=== PATIENT | male | born 1965 | race Caucasian/White ===

== ENCOUNTER 2016-11-02 14:08 | Emergency (ER) | payer SELFPAY ==
[~2016-11-02] VITALS: Ht 182.9 cm; Wt 81.6 kg
--- OUTSIDE RECORDS SUMMARY | 2016-11-02 14:15 | XMS REPORT ---
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 Problem Bipolar I disorder, most recent episode (or current) mixed, severe, specified as with psychotic behavior 296.64 Active Problem Nondependent opioid abuse, unspecified 305.50 Active Problem Chronic pain due to trauma 338.21 Active Assessment Essential hypertension I10 Active Problem Chronic pain syndrome 338.4 Active Problem Anxiety state, unspecified 300.00 Active Medications Medication Code System Code Instructions Start Date End Date Status Dosage Norvasc [facility] [address]-77 5 MG Orally Once a day Oct 06, 2015 1 tablet Metoprolol Tartrate [facility] [address]-05 100 MG Orally 3 times a day 1 tablet Procedures Procedure Coding System Code Date Office Visit, Est Pt., Level 3 CPT-4 98891 Oct 06, 2015 Vital Signs Date/Time: Oct 06, 2015 Temperature 97 F Weight 179.2 lbs Height 70 in BMI 25.71 Index Blood Pressure Diastolic 100 mmHg Blood Pressure Systolic 180 mmHg Cardiac Monitoring Heart Rate 80 bpm Results No Known Results Summary Purpose eClinicalWorks Submission
--- NOTE | 2016-11-02 14:19 | ED Abdominal Pain ---
General Stated Complaint: RT ARM PAIN,VOMITING Source of Information: Patient, Family Exam Limitations: No Limitations History of Present Illness Time Seen By Provider: 15:02 Initial Comments This 50-year-old white male presents with complaint of abdominal pain, hematemesis, and bloody stools. This has been present for the last 2 weeks. In addition the patient is having right shoulder pain made worse with movement. Past medical history of significance includes a right AKA amputation and multiple surgeries from bull riding accidents. Allergies and Home Medications Allergies Uncoded Allergies: ROPERIDOL (Adverse Reaction, Unknown, 11/02/16) Home Medications No Active Prescriptions or Reported Meds Review of Systems Constitutional: No chills, No fever EENTM: No Blurred Vision Respiratory: Denies Cough Cardiovascular: Denies Chest Pain Gastrointestinal: Abdominal Pain (diffuse abdominal pain sharp in nature.) Rectal Bleeding Vomiting (O blood.) Genitourinary: No Symptoms Reported Musculoskeletal: see HPI joint pain (patient is complaining of sharp right shoulder pain made worse with movement.) Skin: No rash Psychiatric/Neurological: Denies Anxiety, Denies Depressed Endocrine: No Symptoms Reported Hematologic/Lymphatic: No Symptoms Reported Past Oizmnfj-Wvjaan-Rffpfi Hx Patient Social History Recent Foreign Travel: No Contact w/Someone Who Travel: No Reviewed Nursing Assessment Reviewed/Agree w Nursing PMH: Yes Physical Exam Vital Signs VS - Last 72 Hours, by Label 11/02/16 14:15 Temp 97.5 Pulse 70 Resp 28 B/P 220/120 Capillary Refill : General Appearance: WD/WN mild distress HEENT: normal ENT inspection Neck: supple Respiratory: lungs clear Cardiovascular: regular rate, rhythm Gastrointestinal: normal bowel sounds non tender soft Extremities: other (movement of the right shoulder causes the patient discomfort. No crepitus or instability was present. There was a normal neurovascular exam times the 4 extremities. Eujjy-qly-traf amputation was noted to the right lower extremity.) Back: normal inspection Neurologic/Psychiatric: no motor/sensory deficits alert normal mood/affect Skin: normal color warm/dry Progress/Results/Core Measures Results/Orders Lab Results Laboratory Tests Test 11/02/16 15:34 11/02/16 16:00 Range/Units Alanine Aminotransferase (ALT/SGPT) 9 0-55 U/L Albumin 4.3 3.2-4.5 G/DL Alkaline Phosphatase 79 40-136 U/L Anion Gap 14 5-14 MMOL/L Aspartate Amino Transf (AST/SGOT) 15 5-34 U/L BUN/Creatinine Ratio 14 Basophils # (Auto) 0.1 0.0-0.1 10^3/uL Basophils (%) (Auto) 0 0-10 % Blood Urea Nitrogen 11 7-18 MG/DL Calcium Level 9.7 8.5-10.1 MG/DL Carbon Dioxide Level 19 L 21-32 MMOL/L Chloride Level 106 98-107 MMOL/L Creatinine 0.80 0.60-1.30 MG/DL Eosinophils # (Auto) 0.1 0.0-0.3 10^3/uL Eosinophils (%) (Auto) 1 0-10 % Estimat Glomerular Filtration Rate > 60 Glucose Level 82 70-105 MG/DL Hematocrit 41 40-54 % Hemoglobin 14.0 13.3-17.7 G/DL INR Comment 0.9 0.8-1.4 Lipase 11 8-78 U/L Lymphocytes # (Auto) 1.8 1.0-4.0 X 10^3 Lymphocytes (%) (Auto) 15 12-44 % Mean Corpuscular Hemoglobin 30 25-34 PG Mean Corpuscular Hemoglobin Concent 34 32-36 G/DL Mean Corpuscular Volume 87 80-99 FL Mean Platelet Volume 11.3 H 7.4-10.4 FL Monocytes # (Auto) 0.9 0.0-1.0 X 10^3 Monocytes (%) (Auto) 7 0-12 % Neutrophils # (Auto) 9.1 H 1.8-7.8 X 10^3 Neutrophils (%) (Auto) 76 H 42-75 % Platelet Count 246 130-400 10^3/uL Potassium Level 4.0 3.6-5.0 MMOL/L Prothrombin Time 12.3 12.2-14.7 SEC Red Blood Count 4.75 4.35-5.85 10^6/uL Red Cell Distribution Width 14.7 H 10.0-14.5 % Sodium Level 139 135-145 MMOL/L Total Bilirubin 0.3 0.1-1.0 MG/DL Total Protein 7.6 6.4-8.2 G/DL White Blood Count 12.0 H 4.3-11.0 10^3/uL Urine Bacteria NEGATIVE /HPF Urine Bilirubin NEGATIVE NEGATIVE Urine Casts NONE /LPF Urine Clarity CLEAR Urine Color YELLOW Urine Crystals NONE /LPF Urine Culture Indicated NO Urine Glucose (UA) NEGATIVE NEGATIVE Urine Ketones NEGATIVE NEGATIVE Urine Leukocyte Esterase NEGATIVE NEGATIVE Urine Mucus NEGATIVE /LPF Urine Nitrite NEGATIVE NEGATIVE Urine Protein NEGATIVE NEGATIVE Urine RBC NONE /HPF Urine RBC (Auto) NEGATIVE NEGATIVE Urine Specific [place] 1.005 L 1.016-1.022 Urine Urobilinogen NORMAL NORMAL MG/DL Urine WBC RARE /HPF Urine pH 7 5-9 My Orders Orders-EVERETT WARD MD Cbc With Automated Diff (11/02/16 14:16) Protime With Inr (11/02/16 14:16) Comprehensive Metabolic Panel (11/02/16 14:16) Lipase (11/02/16 14:16) Ua Culture If Indicated (11/02/16 14:16) Ns Iv 1000 Ml (Sodium Chloride 0.9%) (11/02/16 14:30) Shoulder, Right, 3 Views (11/02/16 15:04) Iohexol Injection (Omnipaque 350 Mg/Ml 1 (11/02/16 15:15) Ns (Ivpb) (Sodium Chloride 0.9% Ivpb Bag (11/02/16 15:15) Fentanyl Injection (Sublimaze Injection (11/02/16 15:30) Ct Abdomen/Pelvis Wo (11/02/16 16:30) Fentanyl Injection (Sublimaze Injection (11/02/16 16:45) Fentanyl Injection (Sublimaze Injection (11/02/16 16:45) Medications Given in ED Current Medications Medications Dose Ordered Sig/Rena Route Start Time Stop Time Status Last Admin Dose Admin Fentanyl Citrate 50 mcg ONCE ONCE IM 11/02/16 15:30 11/02/16 15:31 DC 11/02/16 15:31 50 MCG Fentanyl Citrate 50 mcg ONCE ONCE IM 11/02/16 16:45 11/02/16 16:46 DC 11/02/16 16:45 50 MCG Vital Signs/I&O Vital Sign - Last 12Hours 11/02/16 14:15 Temp 97.5 Pulse 70 Resp 28 B/P 220/120 Progress Note : Time: 17:16 Progress Note Patient's laboratory and rated graphic evaluation were unremarkable. 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 Patient's CT of the abdomen and pelvis were similarly benign. Patient's laboratory evaluation was unremarkable. The patient received a total of 100 g of fentanyl IV. Patient's pain was much improved. I discussed patient's findings with the patient and family. Were going to arrange for close follow-up. Health on Saturday. I gave him a few hydrocodone for pain over the weekend. He was invited return if any acute problems or questions. Departure Impression Impression: Primary Impression: Acute abdominal pain Additional Impressions: Shoulder pain, right Qualified Code: M25.511 - Pain in right shoulder History of GI bleed Disposition: HOME, SELF-CARE Condition: Improved Departure-Patient Inst. Decision time for Depature: 17:18 Referrals: [facility],LOCAL PHYSICIAN (PCP) Primary Care Physician Patient Instructions: Acute Abdomen (Belly Pain), Adult (DC) Add. Discharge Instructions: Close follow-up with [facility] on Saturday. Hydrocodone for pain. Return if any acute problems or questions. Scripts No Active Prescriptions or Reported Meds EVERETT WARD MD Nov 02, 2016 14:19
[2016-11-02] MEDS ORDERED: NS IV 1000 ML 1,000 ML IV SCH (14:30)
[2016-11-02] MEDS ORDERED: NS 100 ML (IVPB) BAG IV ONE (15:15)
[2016-11-02] MEDS ORDERED: IOHEXOL 350 MG/ML 100 ML (OMNIPAQUE 350) VIAL IV ONE (15:15)
[2016-11-02] MEDS ORDERED: fentaNYL INJECTION 100 MCG/2 ML AMP IM ONE ×2 (15:30→16:45)
[2016-11-02 16:10] LABS: BASOPHILS # (AUTO) 0.1 10^3/uL (0.0-0.1); BASOPHILS % (AUTO) 0 % (0-10); EOSINOPHILS # (AUTO) 0.1 10^3/uL (0.0-0.3); EOSINOPHILS % (AUTO) 1 % (0-10); LYMPHOCYTES # (AUTO) 1.8 X 10^3 (1.0-4.0); LYMPHOCYTES % (AUTO) 15 % (12-44); MEAN CORPUSCULAR HEMOGLOBIN 30 PG (25-34); MEAN CORPUSCULAR HGB CONC 34 G/DL (32-36); MEAN CORPUSCULAR VOLUME 87 FL (80-99); MEAN PLATELET VOLUME 11.3 FL (7.4-10.4); MONOCYTES # (AUTO) 0.9 X 10^3 (0.0-1.0); MONOCYTES % (AUTO) 7 % (0-12); NEUTROPHILS # (AUTO) 9.1 X 10^3 (1.8-7.8); NEUTROPHILS % (AUTO) 76 % (42-75); PLATELET COUNT 246 10^3/uL (130-400); RED BLOOD COUNT 4.75 10^6/uL (4.35-5.85); RED CELL DISTRIBUTION WIDTH 14.7 % (10.0-14.5)
[2016-11-02 16:12] LABS: BILIRUBIN,URINE NEGATIVE (NEGATIVE); KETONES,URINE NEGATIVE (NEGATIVE); LEUKOCYTE ESTERASE ,URINE NEGATIVE (NEGATIVE); NITRITE,URINE NEGATIVE (NEGATIVE); PH,URINE 7 (5-9); PROTEIN,URINE NEGATIVE (NEGATIVE); UROBILINOGEN,URINE NORMAL (NORMAL)
[2016-11-02 16:13] LABS: INR 0.9 (0.8-1.4); PROTHROMBIN TIME PATIENT 12.3 SEC (12.2-14.7)
[2016-11-02 16:21] LABS: WBC,URINE RARE /HPF
[2016-11-02 16:23] LABS: ALANINE AMINOTRANSFERASE 9 U/L (0-55); ALBUMIN 4.3 G/DL (3.2-4.5); ANION GAP 14 MMOL/L (5-14); ASPARTATE AMINO TRANSFERASE 15 U/L (5-34); BILIRUBIN,TOTAL 0.3 MG/DL (0.1-1.0); BLOOD UREA NITROGEN 11 MG/DL (7-18); BUN/CREATININE RATIO 14; CALCIUM 9.7 MG/DL (8.5-10.1); CARBON DIOXIDE 19 MMOL/L (21-32); CHLORIDE 106 MMOL/L (98-107); GFR ESTIMATED > 60; GLUCOSE 82 MG/DL (70-105); LIPASE 11 U/L (8-78); SODIUM 139 MMOL/L (135-145); TOTAL PROTEIN 7.6 G/DL (6.4-8.2)
--- NOTE | 2016-11-02 16:24 | Diagnostic Imaging Report ---
INDICATION: Right shoulder pain. FINDINGS: Three views of the right shoulder show no fracture, dislocation, or other acute abnormalities. IMPRESSION: Negative right shoulder. Dictated by: Dictated on workstation # [id number]
[2016-11-02] MEDS ORDERED: fentaNYL INJECTION 100 MCG/2 ML AMP IVP ONE (16:45)
--- NOTE | 2016-11-02 17:08 | Diagnostic Imaging Report ---
PROCEDURE: CT abdomen and pelvis without contrast. TECHNIQUE: Multiple contiguous axial images were obtained through the abdomen and pelvis without the use of intravenous contrast. INDICATION: Tarry stools, hematemesis, right upper quadrant pain of one week's duration. COMPARISON: None. FINDINGS: There is no ascites, abscess, hematoma or other fluid collection. No pneumatosis or free air. The unopacified liver, bile ducts, gallbladder, spleen, adrenals and pancreas are all unremarkable. There is no hydronephrosis. There are no opaque kidney stones. There are no findings of appendicitis or diverticulitis. Arterial and venous vascular calcifications, chronic. There was no focal inflammatory process. No abdominal wall fluid collection or defect. The osseous structures appear nonacute. No abnormal hollow visceral distention. The lung bases are nonacute. IMPRESSION: No obstructive features, inflammatory process, ascites or fluid collection. No acute finding identified. Dictated by: Dictated on workstation # [id number]
[2016-11-02 17:55] VITALS: BP 200/129
== END 2016-11-02 17:58 | disposition home or self-care (01) ==
LOC: ER 14:11
DX: R10.84 Generalized abdominal pain (principal); M25.511 Pain in right shoulder; K92.1 Melena; Z87.19 Personal history of other diseases of the digestive system
CPT/HCPCS: 36415; 73030; 74176; 80053; 81000; 83690; 85025; 85610; 96372; 99282

== ENCOUNTER 2022-12-07 14:20 | Emergency (ER) | payer MEDICAID ==
[~2022-12-07] VITALS: Ht 177 cm; Wt 68.0 kg
--- NOTE | 2022-12-07 15:20 | ED General ---
General Chief Complaint: General Problems/Pain Stated Complaint: GENERAL PAIN Nursing Triage Note: PT CO OF PAIN IN LOWER ABD, INCREASED INC, PT CO OF PAIN IN STUMPS. HAS BILATERAL ABOVE KNEE AMP. STATES HAS BEEN VOIDING BLOOD. CONCERNED ABOUT PROSTRATE. PT HAS RESIDUAL L SIDED WEAKNESS FROM RECENT STROKE APPROX 1 MONTH AGO. PT DID NOT TAKE B/P MEDS THIS AM Source of Information: Patient Exam Limitations: No Limitations (JANNY VILLAFUERTE) History of Present Illness Date Seen by Provider: Dec 07, 2022 Time Seen by Provider: 15:17 Initial Comments Patient is a 57-year-old male with bilateral above-knee amputations, stroke who presents ED with multiple complaints. Reports left stump pain for the past 2 to 3 months. Reports a small little abrasion to his stub. Patient also reports some lower abdominal pain and discomfort over the past few months. Reports urine incontinence with bloody urine. States he has had a few episodes of bowel incontinence over the past two months. He states he has had some urine incontinence prior to the stroke as well. States he had dark tarry stool a few days ago and intermittently since his stroke. Stroke 2 months ago and was evaluated at [facility] patient. Patient states he is on aspirin but denies of any known blood thinners. Chronic left-sided weakness from the stroke. He lost his right leg secondary to bull accident and had a DVT to his left leg 2 years ago. Denies of any chest pain, cough, vomiting, diarrhea, headache, dizziness, alcohol use, drug use. (JANNY VILLAFUERTE) Allergies and Home Medications Allergies Coded Allergies: fentanyl (Verified Allergy, Unknown, 12/07/22) Uncoded Allergies: ROPERIDOL (Adverse Reaction, Unknown, 11/02/16) Patient Home Medication List Home Medication List Reviewed: Yes (JANNY VILLAFUERTE) Hydrocodone/Acetaminophen (Hydrocodone-Acetamin 7.5-325) 7.5 Mg-325 Mg Tablet, 1 EACH PO Q6H Prescribed by: SUZAN MCINTOSH on 12/07/221652 Pantoprazole Sodium (Protonix) 40 Mg Tablet.dr, 40 MG PO DAILY Prescribed by: SUZAN MCINTOSH on 12/07/221651 Review of Systems Review of Systems Constitutional: No chills, No diaphoresis, No malaise, No weakness EENTM: No ear pain, No blurred vision, No double vision Respiratory: No cough, No dyspnea on exertion Cardiovascular: No chest pain Gastrointestinal: abdominal pain; No constipation, No nausea, No vomiting Musculoskeletal: No back pain; joint pain, muscle pain Skin: No change in color, No change in hair/nails (JANNY VILLAFUERTE) All Other Systems Reviewed Negative Unless Noted: Yes (JANNY VILLAFUERTE) Past Cimjvui-Dokhqe-Skmgom Hx Patient Social History Tobacco Use?: Yes Tobacco type used: Cigarettes Smoking Status: Current Everyday Smoker Substance use?: No Alcohol Use?: No Pt feels they are or have been: No (JANNY VILLAFUERTE) Immunizations Up To Date Influenza Vaccine Up-to-Date: No; Not Current First/Initial COVID19 Vaccinat: YES Second COVID19 Vaccination Ziyad: YES (JANNY VILLAFUERTE) Seasonal Allergies Seasonal Allergies: No (JANNY VILLAFUERTE) Past Medical History Surgery/Hospitalization HX: BLOOD CLOT IN LEG CAUSED LEG TO BE AMPT. CRUSH OTHER LEG IN RODEO ACCIDENT. RECENT STROKE. APPENDIX.HTN, MEDS FOR PAIN, MEDS FOR STROKE Orthopedic Diabetes, Non-Insulin dep (JANNY VILLAFUERTE) Physical Exam Vital Signs Vital Signs - First Documented 12/07/22 14:28 Temp 36.7 Pulse 92 Resp 18 B/P (MAP) 173/93 (119) Pulse Ox 98 (GRISEL WARREN MD) Vital Signs Capillary Refill : Less Than 3 Seconds (JANNY VILLAFUERTE) Height, Weight, BMI Height: 6'" Weight: 180lbs. oz. 81.880065io; 21.00 BMI Method:Estimated General Appearance: No Apparent Distress, WD/WN Eyes: Bilateral Eye Normal Inspection, Bilateral Eye PERRL, Bilateral Eye EOMI HEENT: PERRL/EOMI, TMs Normal, Normal ENT Inspection, Pharynx Normal Neck: Full Range of Motion, Normal Inspection, Non Tender, Supple Respiratory: Chest Non Tender, Lungs Clear, Normal Breath Sounds, No Accessory Muscle Use Cardiovascular: Regular Rate, Rhythm, No Edema, No Gallop, No JVD, Normal Peripheral Pulses Gastrointestinal: Normal Bowel Sounds, No Organomegaly, No Pulsatile Mass, Soft, Tenderness (Right lower quadrant tenderness) Extremity: Other (Bilateral above-knee amputations. Small skin abrasion to left knee) Neurologic/Psychiatric: Alert, Oriented x3, No Motor/Sensory Deficits, Normal Mood/Affect, application integration specialist II-XII Norm as Tested Skin: Normal Color, Warm/Dry (JANNY VILLAFUERTE) Progress/Results/Core Measures Suspected Sepsis SIRS Temperature: Pulse: 92 Respiratory Rate: 18 Laboratory Tests 12/07/22 15:30: White Blood Count 13.2H Blood Pressure 173 /93 Mean: 119 Laboratory Tests 12/07/22 15:08: Creatinine 0.90, Total Bilirubin 0.2 12/07/22 15:30: Platelet Count 373 (JANNY VILLAFUERTE) Results/Orders Lab Results Laboratory Tests Test 12/07/22 15:08 12/07/22 15:30 12/07/22 15:35 Range/Units Sodium Level 140 135-145 MMOL/L Potassium Level 4.5 3.6-5.0 MMOL/L Chloride Level 109 H 98-107 MMOL/L Carbon Dioxide Level 22 21-32 MMOL/L Anion Gap 9 5-14 MMOL/L Blood Urea Nitrogen 19 H 7-18 MG/DL Creatinine 0.90 0.60-1.30 MG/DL Estimat Glomerular Filtration Rate 101 BUN/Creatinine Ratio 21 Glucose Level 95 70-105 MG/DL Calcium Level 9.7 8.5-10.1 MG/DL Corrected Calcium 9.5 8.5-10.1 MG/DL Total Bilirubin 0.2 0.1-1.0 MG/DL Aspartate Amino Transf (AST/SGOT) 19 5-34 U/L Alanine Aminotransferase (ALT/SGPT) 18 0-55 U/L Alkaline Phosphatase 79 40-136 U/L C-Reactive Protein High Sensitivity 0.28 0.00-0.50 MG/DL Total Protein 7.4 6.4-8.2 GM/DL Albumin 4.2 3.2-4.5 GM/DL Lipase 26 8-78 U/L White Blood Count 13.2 H 4.3-11.0 10^3/uL Red Blood Count 4.37 4.30-5.52 10^6/uL Hemoglobin 13.0 L 13.3-17.7 g/dL Hematocrit 40 40-54 % Mean Corpuscular Volume 91 80-99 fL Mean Corpuscular Hemoglobin 30 25-34 pg Mean Corpuscular Hemoglobin Concent 33 32-36 g/dL Red Cell Distribution Width 15.8 H 10.0-14.5 % Platelet Count 373 130-400 10^3/uL Mean Platelet Volume 9.9 9.0-12.2 fL Immature Granulocyte % (Auto) 1 % Neutrophils (%) (Auto) 67 42-75 % Lymphocytes (%) (Auto) 25 12-44 % Monocytes (%) (Auto) 6 0-12 % Eosinophils (%) (Auto) 1 0-10 % Basophils (%) (Auto) 0 0-10 % Neutrophils # (Auto) 8.8 H 1.8-7.8 X 10^3 Lymphocytes # (Auto) 3.3 1.0-4.0 X 10^3 Monocytes # (Auto) 0.8 0.0-1.0 X 10^3 Eosinophils # (Auto) 0.1 0.0-0.3 10^3/uL Basophils # (Auto) 0.0 0.0-0.1 10^3/uL Immature Granulocyte # (Auto) 0.1 0.0-0.1 10^3/uL Urine Color YELLOW Urine Clarity CLEAR Urine pH 6.0 5-9 Urine Specific [place] >=1.030 1.016-1.022 Urine Protein NEGATIVE NEGATIVE Urine Glucose (UA) NEGATIVE NEGATIVE Urine Ketones NEGATIVE NEGATIVE Urine Nitrite NEGATIVE NEGATIVE Urine Bilirubin NEGATIVE NEGATIVE Urine Urobilinogen 0.2 < = 1.0 MG/DL Urine Leukocyte Esterase NEGATIVE NEGATIVE Urine RBC (Auto) NEGATIVE NEGATIVE Urine RBC NONE /HPF Urine WBC NONE /HPF Urine Crystals NONE /LPF Urine Bacteria NEGATIVE /HPF Urine Casts NONE /LPF Urine Mucus NEGATIVE /LPF Urine Culture Indicated NO (GRISEL WARREN MD) Vital Signs/I&O 12/07/22 12/07/22 14:28 16:59 Temp 36.7 Pulse 92 Resp 18 B/P (MAP) 173/93 (119) 192/125 Pulse Ox 98 (GRISEL WARREN MD) Vital Signs/I&O Capillary Refill : Less Than 3 Seconds (JANNY VILLAFUERTE) Blood Pressure Mean: 119 Departure Communication (PCP) Reviewed previous ER visits, outpatient visits, lab testing. Patient with a stroke 2 months ago was seen at [facility]. Residual left-sided deficits. He has bilateral above-knee amputations secondary to a bull riding injury and a DVT of the left leg. Patient's complaint of left leg pain for several months since the surgery. Does have a abrasion near the stub without surrounding redness or swelling. Due to location of pain x-ray was ordered which was u nremarkable. No fracture. No evidence of cortical destruction. No suspicion of osteomyelitis at this time. Normal CRP. patient is complaining of right lower quad abdominal pain over the past few months with urine incontinence. Had episode today where he became incontinent. Has had episodes of incontinence since the stroke. He does not have a catheter. He was able to urinate here with a normal stream and without pain. Due to patient's current abdominal pain CBC, CMP, urinalysis was ordered CBC showed an elevated white blood count of 13 but otherwise unremarkable. Likely reactive. No evidence of infection. CMP was unremarkable. He states he is on aspirin. Denies blood thinner. patient reports intermittent dark stool. Refused rectal exam. Denies Pepto-Bismol, iron supplements. Hemoglobin is 13. States last episode of dark tarry stool was 2 days ago. Intermittent black tarry stools over the past 2 months. Recommend reevaluation with lab work in 2 to 3 days with CBC. Reports indigestion and bloating at times. Denies alcohol use or excessive ibuprofen use. Discussed starting on Protonix. Denies history of ulcers, GI bleeds, gastritis. Urinalysis was negative for infection or hematuria. CT abdomen and pelvis was otherwise unremarkable for acute abnormality. No enlarged prostate, hydronephrosis, nephrolithiasis, enlarged bladder suggesting outlet obstruction, evidence of cancer. Patient was given a dose of pain medication. He denies of any headache. He does have history of confusion and finds it difficult of getting words out. No stroke like symptoms at this time. CT scan of the head was held. Discussed all results, lab test with patient. I do believe patient would benefit with outpatient PT, speech therapy. He does have support at home. He is wheelchair-bound. Most of today's complaints are chronic and have been ongoing for the past few months since his stroke. Intermittent urine incontinence potentially secondary to his stroke. Unclear etiology of the dark tarry stool until further evaluation such as Hemoccult test versus EGD, colonoscopy. Hemoglobin is reassuring at this time. States normal bowel mov ements and no incontinence with his bowel movement at this time. Discussed follow-up with your primary care physician for further evaluation. Patient was hypertensive on arrival. Initial blood pressure 173/93, second blood pressure 193/125. Recommend receiving IV hydralazine or oral medication. Patient refused. He states he has blood pressure medication at home. He does not want me to treat his blood pressure at this time. Discussed importance of managing his blood pressure as this can lead to cardiac dysfunction, stroke. He is not established with a primary care physician. He has a scheduled follow-up next . (JANNY VILLAFUERTE) Impression Primary Impression: Abdominal pain Disposition: HOME, SELF-CARE Condition: Stable Departure-Patient Inst. Decision time for Depature: 16:51 (JANNY VILLAFUERTE) Referrals: NO,LOCAL PHYSICIAN (PCP/Family) Primary Care Physician Patient Instructions: Abdominal Pain, Adult ED Scripts Pantoprazole Sodium (Protonix) 40 Mg Tablet.dr 40 MG PO DAILY, #20 TAB Prov: JANNY VILLAFUERTE 12/07/22 Hydrocodone/Acetaminophen (Hydrocodone-Acetamin 7.5-325) 7.5 Mg-325 Mg Tablet 1 EACH PO Q6H, #14 TAB Prov: JANNY VILLAFUERTE 12/07/22 ATTENDING PHYSICIAN NOTE: I was physically present as attending physician in the emergency department during the care of this patient, but I was not directly involved in the decision making or delivery of care for this patient. (GRISEL WARREN MD) JANNY VILLAFUERTE Dec 07, 2022 15:20 GRISEL WARREN MD Dec 08, 2022 09:24
[2022-12-07 15:33] LABS: ALBUMIN 4.2 GM/DL (3.2-4.5); POTASSIUM 4.5 MMOL/L (3.6-5.0)
[2022-12-07 15:34] LABS: CALCIUM 9.7 MG/DL (8.5-10.1)
[2022-12-07 15:35] LABS: TOTAL PROTEIN 7.4 GM/DL (6.4-8.2)
[2022-12-07 15:37] LABS: BILIRUBIN,TOTAL 0.2 MG/DL (0.1-1.0)
[2022-12-07 15:39] LABS: CREATININE SERUM 0.9 MG/DL (0.60-1.30)
[2022-12-07 15:43] LABS: BILIRUBIN,URINE NEGATIVE (NEGATIVE); CLARITY,URINE CLEAR; COLOR,URINE YELLOW; GLUCOSE, URINE (UA) NEGATIVE (NEGATIVE); KETONES,URINE NEGATIVE (NEGATIVE); LEUKOCYTE ESTERASE ,URINE NEGATIVE (NEGATIVE); NITRITE,URINE NEGATIVE (NEGATIVE); PROTEIN,URINE NEGATIVE (NEGATIVE)
[2022-12-07 15:45] LABS: BASOPHILS % (AUTO) 0 % (0-10); EOSINOPHILS # (AUTO) 0.1 10^3/uL (0.0-0.3); EOSINOPHILS % (AUTO) 1 % (0-10); HEMATOCRIT 40 % (40-54); LYMPHOCYTES # (AUTO) 3.3 X 10^3 (1.0-4.0); LYMPHOCYTES % (AUTO) 25 % (12-44); MEAN CORPUSCULAR HEMOGLOBIN 30 pg (25-34); MEAN CORPUSCULAR HGB CONC 33 g/dL (32-36); MEAN CORPUSCULAR VOLUME 91 fL (80-99); MEAN PLATELET VOLUME 9.9 fL (9.0-12.2); MONOCYTES # (AUTO) 0.8 X 10^3 (0.0-1.0); MONOCYTES % (AUTO) 6 % (0-12); NEUTROPHILS # (AUTO) 8.8 X 10^3 (1.8-7.8); NEUTROPHILS % (AUTO) 67 % (42-75); PLATELET COUNT 373 10^3/uL (130-400); WHITE BLOOD COUNT 13.2 10^3/uL (4.3-11.0)
--- NOTE | 2022-12-07 15:53 | Diagnostic Imaging Report ---
CT ABD/PELVIS WO(KIDNEY STONE) TECHNIQUE: Unenhanced CT imaging of the abdomen and pelvis was performed. 2-D reformats are created and submitted for interpretation. Automatic exposure controls were utilized to optimize patient dose. INDICATION: Right-sided abdominal pain COMPARISON: 11/02/2016 FINDINGS: Lower chest: The lung bases are clear. No pericardial or pleural effusion. Peritoneum: No free intraperitoneal air or fluid. Liver and biliary system: Unenhanced liver is normal. Cholecystectomy. Spleen and Pancreas: Spleen is normal. Unenhanced pancreas is grossly normal. Adrenals: Normal. tract: No renal or ureteral calculi. No obstructive uropathy. Urinary bladder is decompressed by Bender catheter. There is a 1.1 x 1.1 cm cyst mid right kidney GI tract: Stomach is filled with fluid and food debris. No bowel obstruction. No pericolonic inflammatory changes. No features of appendicitis. Vasculature and Lymph nodes: Normal caliber aorta has severe atherosclerotic plaquing. No abdominal or pelvic lymphadenopathy. Musculoskeletal: No concerning osseous lesion. IMPRESSION: 1. No acute obstructive or inflammatory process. 2. Urinary tract stones. Dictated by: Dictated on workstation # [id number]
--- NOTE | 2022-12-07 16:00 | Diagnostic Imaging Report ---
INDICATION: Left femoral stump pain, history of yuywl-pvg-pcsq amputation. AP and lateral views of the left femur are obtained. FINDINGS: There is no acute fracture or definite bone erosion. There is heterotopic ossification at the femoral stump, which appears chronic. IMPRESSION: No acute fracture or erosive bony lesion. 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 Dictated by: Dictated on workstation # [id number]
[2022-12-07 16:03] LABS: BACTERIA,URINE NEGATIVE /HPF
[2022-12-07] MEDS ORDERED: PANT40TA2 PO (16:52)
[2022-12-07] MEDS ORDERED: HYDR-3817 PO (16:52)
[2022-12-07 16:59] VITALS: BP 192/125
== END 2022-12-07 17:00 | disposition home or self-care (01) ==
LOC: EDUNIT# 14:20 → ER 14:22
DX: S80.212A Abrasion, left knee, initial encounter (principal); R10.31 Right lower quadrant pain; I82.402 Acute embolism and thrombosis of unspecified deep veins of left lower extremity; I69.398 Other sequelae of cerebral infarction; I10 Essential (primary) hypertension; F17.210 Nicotine dependence, cigarettes, uncomplicated; Z89.511 Acquired absence of right leg below knee; Z89.512 Acquired absence of left leg below knee; Z79.82 Long term (current) use of aspirin; Z99.3 Dependence on wheelchair; X58.XXXA Exposure to other specified factors, initial encounter
CPT/HCPCS: 36415; 73552; 74176; 80053; 81000; 83690; 85025; 86141

== ENCOUNTER 2022-12-18 15:23 | Emergency (ER) | payer MEDICAID ==
[~2022-12-18 15:23] MED LIST: HYDR-3817 PO; PANT40TA2 PO
--- NOTE | 2022-12-18 16:07 | ED General ---
General Chief Complaint: General Problems/Pain Stated Complaint: CHRONIC PAIN/ELEV BP Source of Information: Patient Exam Limitations: No Limitations History of Present Illness Date Seen by Provider: Dec 18, 2022 Time Seen by Provider: 16:04 Initial Comments Patient is a 57-year-old male with a history of stroke, bilateral above-knee amputation presents ED for pain. Patient reports continuous pain in his legs. Also reports generalized abdominal pain and discomfort over the past few months. States he was seen here on 07 December was prescribed Protonix with some improvement. History of intermittent urine incontinence. Able to produce urine today. According to significant other patient does have difficulties with his speech since the stroke. Has not followed up regarding physical therapy, speech therapy. States he is has some weakness secondary to the stroke and falls out of his wheelchair. Patient is on blood pressure medication which she cannot recall. Patient states he has a appointment on the for pain specialist. Denies headache, visual changes, chest pain, shortness of breath, cough, vomiting, diarrhea, redness and swelling of his stubs Allergies and Home Medications Allergies Coded Allergies: fentanyl (Verified Allergy, Unknown, 12/07/22) Uncoded Allergies: ROPERIDOL (Adverse Reaction, Unknown, 11/02/16) Patient Home Medication List Home Medication List Reviewed: Yes Amlodipine Besylate (Amlodipine Besylate) 10 Mg Tablet, 10 MG PO DAILY Prescribed by: SUZAN MCINTOSH on 12/18/221656 Hydrocodone/Acetaminophen (Hydrocodone-Acetamin 7.5-325) 7.5 Mg-325 Mg Tablet, 1 EACH PO Q6H Prescribed by: SUZAN MCINTOSH on 12/07/221652 Hydrocodone/Acetaminophen (Hydrocodone-Acetamin 5-325 mg) 5 Mg-325 Mg Tablet, 1 TAB PO Q4H PRN for PAIN-MODERATE (5-7) Prescribed by: SUZAN MCINTOSH on 12/18/221656 Losartan/Hydrochlorothiazide (Hyzaar 100-12.5 Tablet) 100 Mg-12.5 Mg Tablet, 1 EACH PO DAILY Prescribed by: SUZAN MCINTOSH on 12/18/221656 Pantoprazole Sodium (Protonix) 40 Mg Tablet.dr, 40 MG PO DAILY Prescribed by: SUZAN MCINTOSH on 12/07/221651 Review of Systems Review of Systems Constitutional: No chills, No diaphoresis, No malaise, No weakness EENTM: No ear pain, No blurred vision, No double vision Respiratory: No cough, No dyspnea on exertion, No short of breath Cardiovascular: No chest pain Gastrointestinal: abdominal pain; No constipation, No nausea, No vomiting Genitourinary: No decreased output, No discharge, No frequency, No hematuria Musculoskeletal: No back pain, No joint pain Skin: No change in color, No change in hair/nails All Other Systems Reviewed Negative Unless Noted: Yes Past Xmjozlj-Ladjbc-Cuivab Hx Patient Social History Tobacco Use?: Yes Tobacco type used: Cigarettes Smoking Status: Current Everyday Smoker Use of E-Cig and/or Vaping dev: No Substance use?: No Alcohol Use?: No Pt feels they are or have been: No Immunizations Up To Date Influenza Vaccine Up-to-Date: No; Not Current First/Initial COVID19 Vaccinat: X2 Second COVID19 Vaccination Ziyad: X2 Seasonal Allergies Seasonal Allergies: No Past Medical History Surgery/Hospitalization HX: BLOOD CLOT IN LEG CAUSED LEG TO BE AMPT. CRUSH OTHER LEG IN [place]DEO ACCIDENT. RECENT STROKE, APPENDIX, HTN, CHRONIC PAIN, GERD Orthopedic Diabetes, Non-Insulin dep Physical Exam Vital Signs Vital Signs - First Documented 12/18/22 15:32 Temp 36.7 Pulse 93 Resp 18 B/P (MAP) 207/115 (145) Pulse Ox 99 O2 Delivery Room Air Capillary Refill : Height, Weight, BMI Height: 6'" Weight: 180lbs. oz. [id number]; 21.00 BMI Method:Estimated General Appearance: No Apparent Distress, WD/WN Eyes: Bilateral Eye Normal Inspection, Bilateral Eye PERRL, Bilateral Eye EOMI HEENT: PERRL/EOMI, TMs Normal, Normal ENT Inspection, Pharynx Normal Neck: Full Range of Motion, Normal Inspection, Non Tender, Supple Respiratory: Chest Non Tender, Lungs Clear, Normal Breath Sounds, No Accessory Muscle Use, No Respiratory Distress Cardiovascular: Regular Rate, Rhythm, No Edema, No Gallop, No JVD Gastrointestinal: Normal Bowel Sounds, No Organomegaly, No Pulsatile Mass Back: Normal Inspection, No CVA Tenderness Extremity: Other ( bilateral khlyo-lqw-ceei amputation. No erythema, swelling. 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 History of stroke with chronic pain. Patient was seen here December 07 with lab work for similar complaints. He has not followed up with primary care physician but does have a scheduled follow-up on the December 27 with pain management. patient without any new strokelike symptoms. Bilateral above-knee amputation. Concerning for phantom pain. Patient Was given a dose of pain medication. He had no abdominal tenderness, chest pain, cough, shortness of breath. Patient was hypertensive here. Currently on losartan 100 mg daily and amlodipine 10 mg daily. Patient blood pressure improved once pain was controlled. He has no new current focal neural deficits. Patient with chronic left-sided residual neurodeficits. Patient appears in no acute distress. Differential diagnosis of chronic pain, hypertensive urgency, hypertensive emergency, neuropathy, chronic neural deficits, chronic aphasia. He states pain improved after pain medication. He is requesting a few days worth of pain medication till his appointment. Discussed switching his losartan to losartan/ hydrochlorothiazide 100 mg/12.5mg due to the continuing increased blood pressure. Discussed chronically elevated blood pressure may result in stroke, CHF, coronary artery disease. Do not take the losartan 100 mg at home. Patient does not appear toxic or septic. Patient does have a wheelchair. Recommend speech therapy for his aphasia, physical therapy to help strengthen him poststroke. No new complaints. Patient lab work on December 07 was otherwise unremarkable. He refused lab work at this time. Discussed CBC, CMP for kidney function. No evidence of endorgan damage with his exam such as severe head pain, chest pain, change in urination, abdominal pain. He is currently on Protonix for acid reflux Impression Primary Impression: Chronic pain Additional Impression: Hypertension Disposition: 01 HOME, SELF-CARE Condition: Stable Departure-Patient Inst. Decision time for Depature: 16:35 Referrals: NO,LOCAL PHYSICIAN (PCP/Family) Primary Care Physician Patient Instructions: High Blood Pressure in Adults Add. Discharge Instructions: Do not take the losartan with the Hyzaar. All discharge instructions reviewed with patient and/or family. Voiced understanding. Scripts Hydrocodone/Acetaminophen (Hydrocodone-Acetamin 5-325 mg) 5 Mg-325 Mg Tablet 1 TAB PO Q4H PRN for PAIN-MODERATE (5-7), #10 TAB Prov: JANNY VILLAFUERTE 12/18/22 Losartan/Hydrochlorothiazide (Hyzaar 100-12.5 Tablet) 100 Mg-12.5 Mg Tablet 1 EACH PO DAILY, #30 TAB Prov: JANNY VILLAFUERTE 12/18/22 Amlodipine Besylate (Amlodipine Besylate) 10 Mg Tablet 10 MG PO DAILY, #30 TAB Prov: JANNY VILLAFUERTE 12/18/22 JANNY VILLAFUERTE Dec 18, 2022 16:07
[2022-12-18] MEDS ORDERED: AMLO-251 PO ×2 (16:36→16:57)
[2022-12-18] MEDS ORDERED: LOSA-421 PO ×2 (16:36→16:57)
[2022-12-18] MEDS ORDERED: ACHD5005 PO ×2 (16:36→16:57)
[2022-12-18 16:45] VITALS: BP 167/101
== END 2022-12-18 16:45 | disposition home or self-care (01) ==
LOC: EDUNIT# 15:23 → ER 15:26
DX: T87.89 Other complications of amputation stump (principal); G89.29 Other chronic pain; I10 Essential (primary) hypertension; F17.210 Nicotine dependence, cigarettes, uncomplicated; Z79.899 Other long term (current) drug therapy; Z89.612 Acquired absence of left leg above knee; Z89.611 Acquired absence of right leg above knee; Z88.5 Allergy status to narcotic agent
CPT/HCPCS: 99283